=== PATIENT | female | born 1995 | race Caucasian/White ===

== ENCOUNTER 2016-04-18 14:00 | Emergency (ER) | payer BC ==
--- NOTE | 2016-04-18 14:03 | PDOC ---
History of Present Illness - General History Source: Patient Exam Limitations: No Limitations - History of Present Illness Initial Comments: 04/18/16 14:20 The patient is a 20 year old female with no significant past medical history, presenting to the Emergency Department with epigastric pain for the past 6 days. She describes the pain as constantly dull, with intermittent episodes of increased pain. She admits that the pain is worse in the morning, and worse when she is hungry. She admits that the pain is somewhat alleviated by eating a meal. She states that the pain does not radiate, and that the pain currently a 3 /10 in intensity. She denies a diet high in fats, or acid. Patient denies nausea, vomiting, and diarrhea. Patient denies constipation, or melena. Patient denies dysuria, or urinary frequency. Patient denies fever, chills, and cough. Patient denies back pain, or flank pain. <Laurie Chapin - Last Filed: 04/18/16 14:20> <Milton Doshi - Last Filed: 04/18/16 15:03> - General Chief Complaint: Pain Stated Complaint: ABD PAIN Time Seen by Provider: 04/18/16 14:03 Past History <Laurie Chapin - Last Filed: 04/18/16 14:20> <Milton Doshi - Last Filed: 04/18/16 15:03> - Past Medical History Allergies/Adverse Reactions: Allergies Allergy/AdvReac Type Severity Reaction Status Date / Time No Known Allergies Allergy Verified 04/18/16 14:01 Home Medications: Ambulatory Orders NK [No Known Home Medication] 04/18/16 Pantoprazole Sodium [Protonix] 40 mg PO DAILY #7 tablet. 04/18/16 Review of Systems - Review of Systems Able to Perform ROS?: Yes Comments:: 04/18/16 14:22 CONSTITUTIONAL: Absent: fever, no chills, no fatigue EYES: Absent: visual changes ENT: Absent: ear pain, no sore throat CARDIOVASCULAR: Absent: chest pain, no palpitations RESPIRATORY: Absent: cough, no SOB GI: Present: + epigastric pain Absent: no nausea, no vomiting, no constipation, no diarrhea GENITOURINARY: Absent: dysuria, no frequency, no hematuria MUSCULOSKELETAL: Absent: back pain, no arthralgia, no myalgia SKIN: Absent: rash <Laurie Chapin - Last Filed: 04/18/16 14:20> *Physical Exam - Vital Signs Last Vital Signs Temp Pulse Resp BP Pulse Ox 98 F 86 20 141/84 100 04/18/16 14:01 04/18/16 14:01 04/18/16 14:01 04/18/16 14:01 04/18/16 14:01 - Physical Exam Comments: 04/18/16 14:24 GENERAL: Well-appearing, well-nourished. No apparent distress. HEENT: Normocephalic, atraumatic. PERRL, EOM intact. CARDIOVASCULAR: Normal S1, S2. Regular rate and rhythm. PULMONARY: Clear to auscultation bilaterally. ABDOMEN: Soft, non-distended, non-tender. EXTREMITIES: Normal ROM in all four extremities. No gross deformities. SKIN: Warm, dry. No rash NEUROLOGICAL: No focal neurological deficits. <Laurie Chapin - Last Filed: 04/18/16 14:20> Medical Decision Making - Medical Decision Making 04/18/16 14:10 The patient is well-appearing and in no acute distress Abdomen is soft and nontender Her clinical presentation is most consistent with gastritis Will administer GI cocktail and observe 04/18/16 15:03 Symptoms completely improved after medications Repeat abdominal examination: Nontender Clinical impression: Gastritis The patient is requested a urine test I discussed the physical exam findings, ancillary test results and final diagnoses with the patient. I answered all of the patient's questions. The patient was satisfied with the care received and felt comfortable with the discharge plan and treatment plan. The patient will call their primary care physician within 24 hours to arrange follow-up and will return to the Emergency Department with any new, persistent or worsening symptoms. A portion of this note was documented by scribe services under my direction. I have reviewed the details of the note, within reason, and agree with the documentation with the following case summary and management plan written by me. <Milton Doshi - Last Filed: 04/18/16 15:03> *DC/Admit/Observation/Transfer - Attestations Scribe Attestion: 04/18/16 14:24 Documentation prepared by Laurie Chapin, acting as quality engineer medical device for Milton Doshi MD. <Laurie Chapin - Last Filed: 04/18/16 14:20> <Milton Doshi - Last Filed: 04/18/16 15:03> Diagnosis at time of Disposition: Abdominal pain, Gastritis - Discharge Dispostion Disposition: HOME Condition at time of disposition: Improved - Prescriptions Prescriptions: Pantoprazole Sodium [Protonix] 40 mg PO DAILY #7 tablet.dr - Patient Instructions Printed Discharge Instructions: DI for Gastritis Additional Instructions: Return to the emergency department immediately with ANY new, persistent or worsening symptoms. You MUST call and follow up with your doctor tomorrow. Please make sure your doctor reviews the results of your emergency department evaluation. - Post Discharge Activity Work/School Note: Back to Work
[2016-04-18] MEDS ORDERED: LIDOCAINE VISCOUS 2% ORAL/TOP 100 ML BOTTLE MM ONE (14:11)
[2016-04-18] MEDS ORDERED: PANTOPRAZOLE 40 MG TABLET (FP) PO ONE (14:11)
[2016-04-18] MEDS ORDERED: MAG HYDROX/AL HYDROX/SIMETH 355 ML ORAL.SUSP PO ONE (14:11)
[2016-04-18 14:17] VITALS: BP 141/84; PULSE 86; TEMP 98; BMI 36.9
== END 2016-04-18 15:31 | disposition home or self-care (01) ==
LOC: FER 14:00
DX: K29.70 Gastritis, unspecified, without bleeding (principal)
CPT/HCPCS: 84703; 99282-25